=== PATIENT | female | born 1990 | race Caucasian/White ===

== ENCOUNTER 2016-07-21 19:57 | Inpatient (IN) | payer MEDICAID ==
[~2016-07-21] VITALS: Ht 162.6 cm; Wt 98.0 kg
[2016-07-21 20:23] VITALS: BP 126/64
[2016-07-21] MEDS ORDERED: ACETAMINOPHEN EXTRA STRENGTH 500 MG TAB ONE (20:37)
--- NOTE | 2016-07-21 21:48 | NUR ---
PT TAKEN TO BED 8
--- NOTE | 2016-07-21 21:54 | NUR ---
PATIENT PRESENTS TO ED WITH FEVER, CHILLS, SINGH, N/V/D . PT STATES SHE WAS RECENTLY DX WITH THE STOMACH FLU . SKIN IS PINK/WARM/DRY; AAOX4 WITH EVEN AND STEADY GAIT; LUNGS CLEAR BL; HR EVEN AND REGULAR; PT DENIES ANY CP, SOB, OR COUGH AT THIS TIME; PATIENT STATES PAIN OF 9/10 AT THIS TIME; VSS; PATIENT POSITIONED FOR COMFORT; HOB ELEVATED; BEDRAILS UP X2; BED DOWN. ER MD MADE AWARE OF PT STATUS.
--- NOTE | 2016-07-21 22:30 | NUR ---
Dr. Guillaume evaluating patient at bedside.
[2016-07-21] MEDS ORDERED: NACL 0.9% 3,000 ML IV ONE (22:35)
[2016-07-21] MEDS ORDERED: KETOROLAC 30 MG/ML VIAL IVP ONE (22:35)
--- NOTE | 2016-07-21 23:16 | NUR ---
PT TAKEN TO CT
[2016-07-22] MEDS ORDERED: LEVOFLOXACIN 750 MG/D5W PREMIX 150 ML IV ONE (01:05)
--- NOTE | 2016-07-22 01:16 | NUR ---
Patient will be admitted to care of . Admited to TELEMETRY. Will go to room 111 B. Belongings list completed.
--- NOTE | 2016-07-22 01:25 | NUR ---
REPORT GIVEN TO SHILPI SCHMIDT.
--- NOTE | 2016-07-22 01:50 | NUR ---
PT ARRIVED ON UNIT IN STABLE CONDITION. NO SOB, NO SIGNS OF DISTRESS. HR 118, OTHER VS WNL ON ROOM AIR. PT IS AOX4, AMBULATORY. SKIN IS INTACT, PT DENIES PAIN AT THIS TIME. PT C/O NAUSEA, WILL MEDICATE PER MD ORDER. IV TO LT HAND 22G PATENT, ASYMPTOMATIC, INTACT, IVF RUNNING. ORIENTED PT TO ROOM AND UNIT. BOYFRIEND AT BEDSIDE. PLAN OF CARE DISCUSSED. SAFETY MEASURES IN PLACE. CALL LIGHT WITHIN REACH. WILL CONTINUE TO MONITOR.
--- NOTE | 2016-07-22 01:55 | NUR ---
TRANSFER OF CARE AT THIS TIME
[2016-07-22 02:34] VITALS: BP 112/67
[2016-07-22] MEDS: ONDANSETRON 4 MG/2 ML VIAL IVP PRN ×2 (03:05→20:16)
[2016-07-22 04:00] VITALS: BP 107/64
--- NOTE | 2016-07-22 04:22 | NUR ---
VS STABLE ON ROOM AIR. PT C/O PAIN, WILL MEDICATE PER MD ORDER. NO SOB, NO SIGNS OF DISTRESS. IV SITE ASYMPTOMATIC, INTACT, PATENT, IVF RUNNING. PLAN OF CARE DISCUSSED WITH PT. SAFETY MEASURES IN PLACE. CALL LIGHT WITHIN REACH. WILL CONTINUE TO MONITOR.
[2016-07-22] MEDS: HYDROcodone/APAP 5/325 MG 1 TAB TAB PO PRN ×2 (04:49→11:35)
[2016-07-22] MEDS: NACL 0.9% 1,000 ML IV SCH ×4 (04:49→20:16)
--- NOTE | 2016-07-22 07:30 | NUR ---
ENDORSED PT IN STABLE CONDITION TO BRAYAN SILVA. ALL NEEDS HAVE BEEN MET AT THIS TIME.
--- NOTE | 2016-07-22 08:02 | NUR ---
PATIENT HAS BEEN SCREENED AND CATEGORIZED HIGH NUTRITION RISK. PATIENT WILL BE SEEN WITHIN 1-2 DAYS OF ADMISSION. 07/22/16-07/23/[address]
--- NOTE | 2016-07-22 09:20 | NUR ---
RECEIVED REPORT FROM BRAYAN SILVA, PTIliana BEEBE, WILL CONTINUE TO MONITOR
[2016-07-22 09:53] VITALS: BP 102/58
--- NOTE | 2016-07-22 10:36 | NUR ---
CM NOTE INITIAL REVIEW SENT TO [facility] FAX# [phone] PH# ADDISON [phone], MAULIK Awad [phone] EXT [phone] AND TO [facility] FAX# [phone] PH# STAS [phone]
[2016-07-22 11:28] VITALS: BP 102/62
--- NOTE | 2016-07-22 11:40 | NUR ---
PT. TOLERATED MEDS WITHOUT PROBLEM
[2016-07-22 15:28] VITALS: BP 116/57
[2016-07-22] MEDS: MORPHINE SULFATE 2 MG/ML SYR IVP PRN ×2 (15:33→20:16)
--- NOTE | 2016-07-22 15:34 | NUR ---
PT. TOLERATED MEDS WITHOUT PROBLEM
--- NOTE | 2016-07-22 17:06 | NUR ---
CHECKED IN ON PT., PT. RESTING COMFORTABLY, BED IN LOW POSITION, CALL LIGHT WITH IN REACH, WILL CONTINUE TO MONITOR
--- NOTE | 2016-07-22 19:13 | NUR ---
ENDORSED PT. TO NIGHT NURSE GLORIA SCHMIDT, PT. STABLE
--- NOTE | 2016-07-22 19:30 | NUR ---
RECEIVED REPORT FROM DAY RN AT BEDSIDE, PATIENT IS AAOX4 RESTING IN BED ON ROOM AIR, NO SOB OR SIGN OF DISTRESS AT THIS TIME, PATIENT HAS IV TO LEFT HAND PATENT AND INTACT WITH IVF INFUSING WELL, SKIN IS INTACT, PATIENT ASKED TO CHECK TEMPERATURE BECAUSE SHE FELT HOT, TEMP WAS 99.6, PROVIDED WITH COOLING MEASURES, DISCUSSED PLAN OF CARE WITH PATIENT, PATIENT VERBALIZED UNDERSTANDING, CALL LIGHT WITHIN REACH. WILL CONTINUE TO MONITOR.
[2016-07-22] MEDS ORDERED: ACETAMINOPHEN 325 MG TAB PO PRN (19:55)
--- NOTE | 2016-07-22 19:55 | NUR ---
PAGED DR OCONNOR NICKEL OPERATOR FOR DR MCDANIEL. PATIENT HAS TEMP OF 101.1, REQUESTED TYLENOL, COOLING MEASURES IN PLACE, AWARE. WILL F/U WITH ORDERS.
[2016-07-22] MEDS: LEVOFLOXACIN 750 MG/D5W PREMIX 150 ML IV SCH (20:16)
--- NOTE | 2016-07-22 20:30 | NUR ---
PM MED ADMINISTERED PATIENT TOLERATED WELL, NO SOB OR SIGN OF DISTRESS AT THIS TIME, CALL LIGHT WITHIN REACH. WILL CONTINUE TO MONITOR.
[2016-07-23] VITALS: BP 110/57
--- NOTE | 2016-07-23 00:14 | NUR ---
VITAL SIGNS STABLE, NO SOB OR SIGN OF DISTRESS, PATIENT DENIES PAIN AT THIS TIME, CALL LIGHT WITHIN REACH. WILL CONTINUE TO MONITOR.
--- NOTE | 2016-07-23 02:20 | NUR ---
PATIENT SLEEPING, NO SOB OR SIGN OF DISTRESS AT THIS TIME, CALL LIGHT WITHIN REACH. WILL CONTINUE TO MONITOR.
--- NOTE | 2016-07-23 04:15 | NUR ---
PATIENT SLEEPING, NO SOB OR SIGN OF DISTRESS AT THIS TIME, CALL LIGHT WITHIN REACH. WILL CONTINUE TO MONITOR.
--- NOTE | 2016-07-23 07:27 | NUR ---
RECEIVED REPORT FROM NIGHT NURSE, PT IS AAOX4, ON ROOM AIR, IV TO LEFT HAND 22G INFUSING WELL. SKIN INTACT. SCD'S NOTED. INITIAL ASSESSMENT COMPLETED. REVIEWED PLAN OF CARE WITH PT. PT VERBALIZED UNDERSTANDING. ALL SAFETY/FALL PRECAUTIONS MET. CALL LIGHT WITHIN REACH. WILL CONTINUE TO MONITOR.
--- NOTE | 2016-07-23 07:27 | NUR ---
ENDORSED PATIENT TO DAY RN AT BEDSIDE, PATIENT IN STABLE CONDITION.
[2016-07-23 08:00] VITALS: BP 112/66
[2016-07-23] MEDS: ASPIRIN 81 MG TAB.CHEW PO SCH (08:57)
[2016-07-23] MEDS: MORPHINE SULFATE 2 MG/ML SYR IVP PRN (08:58)
--- NOTE | 2016-07-23 09:01 | NUR ---
DUE MEDICATIONS GIVEN. PT C/O PAIN 11/25 MEDICATED PER MD ORDERS. ALL NEEDS MET. CALL LIGHT WITHIN REACH.
--- NOTE | 2016-07-23 09:13 | NUR ---
CM NOTE CONCURRENT REVIEW SENT TO [facility] [place] FAX# [phone] PH# ADDISON [phone], MAULIK Awad [phone] EXT [phone] AND TO [facility] FAX# [phone] PH# STAS [phone]
[2016-07-23] MEDS: NACL 0.9% 1,000 ML IV SCH ×2 (10:37→19:02)
[2016-07-23] MEDS ORDERED: MULTIVITAMIN/MINERALS 1 TAB PO SCH (10:49)
[2016-07-23] MEDS ORDERED: MAG SULF 2000 MG/WATER PREMIX 50 ML IV SCH (10:51)
[2016-07-23] MEDS ORDERED: POTASSIUM CHLORIDE 10 MEQ TABER PO SCH (11:00)
--- NOTE | 2016-07-23 11:05 | NUR ---
PT CURRENTLY SLEEPING. CALL LIGHT WITHIN REACH WILL CONTINUE TO MONITOR.
--- NOTE | 2016-07-23 13:05 | NUR ---
07/23/16 RD INITIAL ASSESSMENT COMPLETED PLEASE REFER TO NUTRITION ASSESSMENT UNDER CARE ACTIVITY FOR ESTIMATED NUTRITIONAL NEEDS. RD RECOMMENDATIONS: 1. CONTINUE REGULAR DIET TOLERATED 2. ENCOURAGE ADEQUATE PO INTAKE 3. REPLETE ELECTROLYTES NEEDED 4. RD WILL F/U 3-5 DAYS; MODERATE RISK. ROSELINE FREEMAN RD
--- NOTE | 2016-07-23 13:25 | NUR ---
PT CURRENTLY RESTING IN BED NO S/S OF DISCOMFORT OR DISTRESS NOTED. ALL NEEDS MET. CALL LIGHT WITHIN REACH. WILL CONTINUE TO MONITOR.
[2016-07-23 16:00] VITALS: BP 99/62
--- NOTE | 2016-07-23 16:00 | NUR ---
PT C/O DIARRHEA WILL MEDICATE PER MD ORDERS.
[2016-07-23] MEDS ORDERED: LOPERAMIDE 2 MG CAP PO PRN (16:35)
--- NOTE | 2016-07-23 18:45 | NUR ---
PT CURRENTLY IN BED VISITOR AT BED SIDE, NO S/S OF DISTRESS NOTED. ALL NEEDS MET. CALL LIGHT WITHIN REACH
--- NOTE | 2016-07-23 19:20 | NUR ---
ENDORSED PLAN OF CARE TO NIGHT NURSE. PT IN STABLE CONDITION
--- NOTE | 2016-07-23 19:30 | NUR ---
RECEIVED REPORT FROM DAY RN AT BEDSIDE, PATIENT AWAKE, AAOX4 RESTING IN BED WITH VISITOR AT BEDSIDE, PATIENT IS ON ROOM AIR, NO SOB OR SIGN OF DISTRESS AT THIS TIME, SKIN INTACT, IV TO LEFT HAND PATENT AND INTACT WITH IVF INFUSING WELL. PATIENT DENIES PAIN AT THIS TIME, DISCUSSED PLAN OF CARE WITH PATIENT, PATIENT VERBALIZED UNDERSTANDING. SAFETY MEASURES CHECKED, CALL LIGHT WITHIN REACH. WILL CONTINUE TO MONITOR.
[2016-07-23] MEDS: LEVOFLOXACIN 750 MG/D5W PREMIX 150 ML IV SCH (20:32)
--- NOTE | 2016-07-23 20:40 | NUR ---
DUE MED ADMINISTERED PER MD ORDER, PATIENT RESTING IN BED WITH VISITOR AT BEDSIDE, NO SOB OR DISTRESS, CALL LIGHT WITHIN REACH. WILL CONTINUE TO MONITOR.
[2016-07-24] VITALS: BP 96/59
--- NOTE | 2016-07-24 00:10 | NUR ---
VITAL SIGNS STABLE, NO SIGN OF DISTRESS AT THIS TIME, CALL LIGHT WITHIN REACH. WILL CONTINUE TO MONITOR.
--- NOTE | 2016-07-24 02:00 | NUR ---
PATIENT SLEEPING, NO SOB OR SIGN OF DISTRESS AT THIS TIME, CALL LIGHT WITHIN REACH. WILL CONTINUE TO MONITOR.
[2016-07-24] MEDS: NACL 0.9% 1,000 ML IV SCH (03:19)
--- NOTE | 2016-07-24 04:10 | NUR ---
PATIENT SLEEPING, NO SOB OR SIGN OF DISTRESS AT THIS TIME, CALL LIGHT WITHIN REACH. WILL CONTINUE TO MONITOR.
--- NOTE | 2016-07-24 07:33 | NUR ---
ENDORSED PATIENT FOR CONTINUITY OF CARE TO DAY RN, PATIENT IN STABLE CONDITION
[2016-07-24 08:00] VITALS: BP 105/66
--- NOTE | 2016-07-24 08:00 | NUR ---
PT AAOX4, PLEASANT AND COOPERATIVE AND VOICED NO C/O PAIN/ DISCOMFORT. SHIFT ASSESSMENT DONE AND CHARTED. PLAN OF CARE, MAED, TREATMANTS AND SAFETY DISCUSSED WITH PT. PT VERBALIZED UNDERSTANDING. WILL CONTINUE TO CHECK ON PT.
[2016-07-24] MEDS ORDERED: MULTIVITAMIN/MINERALS 1 TAB PO SCH (09:00)
--- NOTE | 2016-07-24 09:30 | NUR ---
PT TOOK DIET AND SCHEDULED MEDS WELL. NO C/O LOOSE BM OR ANY THER GI DISCOMFORT AT THIS TIME.
[2016-07-24] MEDS: ASPIRIN 81 MG TAB.CHEW PO SCH (09:39)
[2016-07-24] MEDS ORDERED: LEVAQUIN750 MG PO (10:59)
[2016-07-24] MEDS ORDERED: BD LACTINEX1.4 MG PO (10:59)
--- NOTE | 2016-07-24 12:30 | NUR ---
PT LYING IN BED COMFORTABLY AND VOICED NO C/O PAIN OR ANY OTHER DISCOMFORT. PT WAITING TO BE DISCHARG TODAY. NO ORDER FOR SAME AT THIS TIME.
--- NOTE | 2016-07-24 14:50 | NUR ---
PRESCRIPTIONS AND DISCHARGE INSTRUCTIONS GIVEN TO PT AND PT VERBALIZED UNDERSTANDING. SALINE REMOVED WITH OLD CATH TIP INTACT AND PRESSURE DRESSINGS APPLIED TO SITE. PT DISCHARGED TO HOME AMBULATORY ACCOMPANIED BY HER BOYFRIEND IN A STABLE CONDITION. PT ESCORTED OUT BY MANAGER HEMATOLOGY AND ALL PT'S BELONGINGS SENT WITH PT.
== END 2016-07-24 14:50 | disposition home or self-care (01) | DRG 720 ==
LOC: MED 19:57 → MTU 07-22 01:18
PROVIDERS: ADMIT Family Medicine; ATTEND Family Medicine
DX: A41.9 Sepsis, unspecified organism (principal); E43 Unspecified severe protein-calorie malnutrition; N39.0 Urinary tract infection, site not specified; E66.9 Obesity, unspecified; J45.909 Unspecified asthma, uncomplicated; E83.42 Hypomagnesemia; E87.6 Hypokalemia; Z53.29 Procedure and treatment not carried out because of patient's decision for other reasons; D64.9 Anemia, unspecified; E83.39 Other disorders of phosphorus metabolism; Z68.37 Body mass index [BMI] 37.0-37.9, adult; Z88.2 Allergy status to sulfonamides

== ENCOUNTER 2019-06-30 20:07 | Emergency (ER) | payer MEDICAID ==
[~2019-06-30] VITALS: Ht 165.1 cm; Wt 113.4 kg
[~2019-06-30 20:07] MED LIST: LACT1.4C PO; LEVO750T2 PO
[2019-06-30 20:13] VITALS: BP 123/75
--- NOTE | 2019-06-30 20:30 | NUR ---
Note undone in ED - 06/30/19 at 2140 by LIZ RECIEVED ABX AND COUGH SYRUP, AND COMPLETED BOTH REGIMENS. STATES SHE FEELS OKAY ONE DAY AND SICK THE NEXT. STATES THAT SHES BEEN TESTED FOR INFLUENZA A AND B AND STREP AND ALL CAME BACK NEGATIVE. LUNGS CLEAR BILATERALLY THROUGHOUT. SPO2 WNL. NO SOB OR LABORED BREATHING NOTED AT THIS TIME. RESPIRATIONS ARE SHALLOW WITH RR OF 18. PMH- ASTHMA WITH HOSPITALIZATION X 6 MONTHS A CHILD, PER PT. MEDS- NONE ALLERGIES- SULFAS. Addendum: 06/30/19 at 213 by LIZ Amendment undone in [facility] - 06/30/19 at 2140 by LIZ PT C/O SORE THROAT X 4 WEEKS. PT STATES SHES BEEN TO A "FEW OTHER HOSPITALS" AND RECIEVED ABX AND COUGH SYRUP, AND COMPLETED BOTH REGIMENS. STATES SHE FEELS OKAY ONE DAY AND SICK THE NEXT. STATES THAT SHES BEEN TESTED FOR INFLUENZA A AND B AND STREP AND ALL CAME BACK NEGATIVE. LUNGS CLEAR BILATERALLY THROUGHOUT. SPO2 WNL. NO SOB OR LABORED BREATHING NOTED AT THIS TIME. RESPIRATIONS ARE SHALLOW WITH RR OF 18. PMH- ASTHMA WITH HOSPITALIZATION X 6 MONTHS A CHILD, PER PT. MEDS- NONE
--- NOTE | 2019-06-30 21:00 | NUR ---
STREP SWAB AND THROAT CULTURE COLLECTED AND GIVEN TO MODEL MAKER FIREARMS.
[2019-06-30 22:13] VITALS: BP 123/75
--- NOTE | 2019-06-30 22:13 | NUR ---
Patient discharged with v/s stable. Written and verbal after care instructions given and explained. Patient alert, oriented and verbalized understanding of instructions. Ambulatory with steady gait. All questions addressed prior to discharge. ID band removed. Patient advised to follow up with PMD. Rx of MEDROL given. Patient educated on indication of medication including possible reaction and side effects. Opportunity to ask questions provided and answered.
== END 2019-06-30 22:13 | disposition home or self-care (01) ==
LOC: MED 20:07
DX: J02.9 Acute pharyngitis, unspecified (principal); Z79.899 Other long term (current) drug therapy; Z88.2 Allergy status to sulfonamides
CPT/HCPCS: 86308; 87081; 99283